=== PATIENT | female | born 1950 | race Caucasian/White ===

== ENCOUNTER 2017-06-17 07:15 | Inpatient (IN) | payer OTHER ==
[~2017-06-17] VITALS: Ht 157.5 cm; Wt 67.1 kg
[2017-06-17] MEDS ORDERED: GLIMEPIRIDE2 MG PO (09:18)
[2017-06-17] MEDS ORDERED: AVAPRO150 MG PO (09:19)
[2017-06-17] MEDS ORDERED: ACID REDUCER20 MG PO (09:20)
== END 2017-06-27 15:01 | disposition home or self-care (01) | DRG 331 ==
LOC: O/R 06-24 06:59 → SURH 06-24 06:59 → SURG 06-24 13:04 → SURH 06-27 15:01
PROVIDERS: Colon & Rectal Surgery
PROC: 0DJD8ZZ Inspection of Lower Intestinal Tract, Via Natural or Artificial Opening Endoscopic (ICD-10-PCS; 2017-06-24)
PROC: 0DTE4ZZ Resection of Large Intestine, Percutaneous Endoscopic Approach (ICD-10-PCS; principal; 2017-06-24 10:00)
DX: K57.32 Diverticulitis of large intestine without perforation or abscess without bleeding (principal); K62.4 Stenosis of anus and rectum; K59.02 Outlet dysfunction constipation; E11.9 Type 2 diabetes mellitus without complications; I11.9 Hypertensive heart disease without heart failure

== ENCOUNTER 2018-07-31 06:46 | Day surgery (SDC) | payer OTHER ==
[~2018-07-31 06:46] MED LIST: ACID REDUCER20 MG PO; AVAPRO150 MG PO; GLIMEPIRIDE2 MG PO
== END 2018-07-31 14:00 | disposition home or self-care (01) ==
LOC: AMB-ENDOS 06:46
DX: K57.32 Diverticulitis of large intestine without perforation or abscess without bleeding (principal)